=== PATIENT | female | born 1970 | race American Indian/Alaskan Native ===

== ENCOUNTER 2017-01-22 18:36 | Emergency (ER) | payer BC ==
--- NOTE | 2017-01-22 20:42 | XRay Report ---
FINAL REPORT EXAM: XR ANKLE 3 LT HISTORY: swollen and painful for injury TECHNIQUE: Three views left ankle PRIORS: None. FINDINGS: No fracture is identified. No dislocation seen. Ankle mortise is intact no evidence of joint space widening. No erosive or degenerative changes are identified. No evidence of joint effusion. There is lateral soft tissue swelling Noted is a small plantar calcaneal enthesophyte IMPRESSION: Lateral soft tissue swelling Small heel spur noted
--- NOTE | 2017-01-22 21:14 | Emergency Department Report ---
ED Lower Extremity HPI - General Chief Complaint: Extremity Injury, Lower Stated Complaint: TWISTED R ANKLE Time Seen by Provider: 01/22/17 21:13 Source: patient Mode of arrival: Ambulatory Limitations: No Limitations - History of Present Illness Initial Comments: Patient here she reports that she twisted her left ankle and swollen and) and pain at 10 out of 10. Denies any numbness or tingling. Followed by an orthopedic doctor because she said she had surgery for her right ankle. She says she is in physical therapy now. She says she was walking and she rolled her ankle. Denies any fall. MD Complaint: ankle injury Onset/Timin Injury: Ankle: Left (swelling and pain) Type of Injury: inversion Place: street/outdoors Severity: severe Severity scale (0 -10): 8 Improves With: nothing Context: walking Associated Symptoms: swelling, able to partially bear weight. denies: snap/pop sensation, numbness, tingling, unable to bear weight Treatments Prior to Arrival: cold therapy, NSAIDS - Related Data Previous Rx's Medication Instructions Recorded Last Taken Type Clopidogrel Bisulfate [Plavix] 75 mg PO DAILY #30 tablet 11/16/14 Unknown Rx Meclizine [Antivert] 25 mg PO Q8H PRN #30 tablet 11/16/14 Unknown Rx Simvastatin [Zocor TAB] 20 mg PO QHS #30 tablet 11/16/14 Unknown Rx Verapamil ER [Calan SR] 180 mg PO QDAY #30 tablet 11/16/14 Unknown Rx Butalb/Acetamin/Caff 50-325-40 1 tab PO Q4H PRN #20 tablet 09/06/15 Unknown Rx [Fioricet] oxyCODONE /ACETAMINOPHEN [Percocet 1 tab PO Q6HR PRN #14 tablet 09/06/15 Unknown Rx 5/325] Ibuprofen [Motrin 800 MG tab] 800 mg PO Q8H #15 tablet 01/22/17 Unknown Rx Allergies Allergy/AdvReac Type Severity Reaction Status Date / Time adhesive tape Allergy Rash Unverified 08/27/16 07:17 latex Allergy Unknown Verified 09/06/15 10:04 phenytoin sodium AdvReac Hives Verified 09/06/15 10:04 [From Dilantin] phenytoin sodium extended AdvReac Hives Verified 09/06/15 10:04 [From Dilantin] BAND-AID Allergy Unknown Uncoded 08/27/16 07:18 ED Review of Systems ROS: Stated complaint: TWISTED R ANKLE Other details as noted in HPI Comment: All other systems reviewed and negative Constitutional: denies: chills, fever Respiratory: no symptoms reported Cardiovascular: denies: chest pain, palpitations, edema, syncope Gastrointestinal: denies: abdominal pain, nausea, vomiting, diarrhea Genitourinary: denies: urgency, dysuria, frequency, hematuria, discharge Musculoskeletal: joint swelling, arthralgia. denies: back pain, myalgia Skin: denies: rash Neurological: denies: headache, numbness, paresthesias, confusion, abnormal gait , vertigo ED Past Medical Hx - Past Medical History Previous Medical History?: Yes Hx Hypertension: Yes Hx CVA: Yes Hx Congestive Heart Failure: No Hx Diabetes: No Hx Headaches / Migraines: Yes Hx Seizures: Yes (eclampsia) Hx Asthma: No Hx COPD: No Hx HIV: No - Surgical History Past Surgical History?: Yes Additional Surgical History: hysterectomy - Family History Family history: hypertension - Social History Smoking Status: Never Smoker Substance Use Type: Alcohol - Medications Home Medications: Home Medications Medication Instructions Recorded Confirmed Last Taken Type Clopidogrel Bisulfate [Plavix] 75 mg PO DAILY #30 tablet 11/16/14 Unknown Rx Meclizine [Antivert] 25 mg PO Q8H PRN #30 tablet 11/16/14 Unknown Rx Simvastatin [Zocor TAB] 20 mg PO QHS #30 tablet 11/16/14 Unknown Rx Verapamil ER [Calan SR] 180 mg PO QDAY #30 tablet 11/16/14 Unknown Rx Butalb/Acetamin/Caff 50-325-40 1 tab PO Q4H PRN #20 tablet 09/06/15 Unknown Rx [Fioricet] oxyCODONE /ACETAMINOPHEN [Percocet 1 tab PO Q6HR PRN #14 tablet 09/06/15 Unknown Rx 5/325] Ibuprofen [Motrin 800 MG tab] 800 mg PO Q8H #15 tablet 01/22/17 Unknown Rx ED Physical Exam - General Limitations: No Limitations General appearance: alert, in no apparent distress - Head Head exam: Present: atraumatic, normocephalic, normal inspection - Eye Eye exam: Present: normal appearance, PERRL, EOMI Pupils: Present: normal accommodation - ENT ENT exam: Present: normal exam, normal orophraynx, mucous membranes moist, TM's normal bilaterally, normal external ear exam - Neck Neck exam: Present: normal inspection, tenderness, full ROM - Respiratory Respiratory exam: Present: normal lung sounds bilaterally. Absent: respiratory distress, chest wall tenderness - Cardiovascular Cardiovascular Exam: Present: regular rate, normal rhythm, normal heart sounds - Expanded Lower Extremity Exam Left Hip exam: Present: normal inspection, full ROM, pelvic stability. Absent: tenderness, swelling, abrasion, laceration, ecchymosis, deformity, crepidus, dislocation, erythema, external rotation, internal rotation, shortening Upper Leg exam: Present: normal inspection, full ROM. Absent: tenderness, swelling, abrasion, laceration, ecchymosis, deformity, crepidus, dislocation, erythema Knee exam: Present: normal inspection, full ROM, full knee extension. Absent: tenderness, swelling, abrasion, laceration, ecchymosis, deformity, crepidus, dislocation, erythema, effusion, pain w/ pronation/supination, posterior draw sign, pain/laxity with valgus, pain/laxity with varus Lower Leg exam: Present: normal inspection, full ROM. Absent: tenderness, swelling, abrasion, laceration, ecchymosis, deformity, crepidus, dislocation, erythema, palpable cord, Jarret's sign Ankle exam: Present: tenderness (LT outer ankle), swelling (LT outer ankle). Absent: full ROM (patient limited range of motion to left ankle due to pain and swelling. Patient able to ambulate but she is limping. She is able to dorsiflex and plantar flex but painful), abrasion, laceration, ecchymosis, deformity, crepidus, dislocation, erythema Foot/Toe exam: Present: normal inspection, full ROM. Absent: tenderness, swelling, abrasion, laceration, ecchymosis, deformity, crepidus, dislocation, erythema, amputation, puncture wound, foreign body, calcaneal tenderness, tenderness at base of 5th metatarsal, nail avulsion, subungual hematoma Neuro vascular tendon exam: Present: no vascular compromise, significant pain with passive ROM of distal joint. Absent: pulse deficit, abnormal cap refill, motor deficit, sensory deficit, tendon deficit, extremity cold to touch, pallor , abnormal 2-point discrimination, decreased fine/light touch, foot drop, peroneal nerve deficit Gait: Positive: observed and limited by pain - Neurological Exam Neurological exam: Present: alert, oriented X3, abnormal gait (lle), reflexes normal - Psychiatric Psychiatric exam: Present: normal affect, normal mood - Skin Skin exam: Present: warm, dry, intact, normal color. Absent: rash ED Course Vital Signs 01/22/17 19:37 Temperature 97.8 F Pulse Rate 80 Respiratory 18 Rate Blood Pressure 143/94 O2 Sat by Pulse 100 Oximetry - Reevaluation(s) Reevaluation #1: 01/22/17 22:11 Patient given motrin 800 mg po for pain. - Orthopedic Splinting/Casting Injury #1 Side: left Lower Extremity Injury Location: ankle Lower Extremity Immobilizer: Gio wrap Additional Comments: refused crutche ED Lower Extremity MDM - Radiology Data Radiology results: report reviewed X-ray of left ankle reveal no fracture or dislocation positive for soft tissue swelling - Medical Decision Making ED course: See procedure note for details and ankle splinting. Patient x-ray was negative for fracture dislocation and she has ankle sprain and I discussed this with her. I also discuss to rest, ice, compress and elevate the area for 72 hours and to take Motrin as prescribed to decrease swelling. already has orthopedic doctor said told her if her pain is not relieved in 4 days then she will need to follow-up with her orthopedic doctor for further evaluation and treatment. She discharged home with prescription for Motrin. Critical care attestation.: If time is entered above; I have spent that time in minutes in the direct care of this critically ill patient, excluding procedure time. ED Disposition Clinical Impression: Arthralgia of ankle, left Left ankle sprain Qualifiers: Encounter type: initial encounter Involved ligament of ankle: unspecified ligament Qualified Code(s): S93.402A - Sprain of unspecified ligament of left ankle, initial encounter Left ankle injury Qualifiers: Encounter type: initial encounter Qualified Code(s): S99.912A - Unspecified injury of left ankle, initial encounter Disposition: DISCHARGED TO HOME OR SELFCARE Is pt being admited?: No Does the pt Need Aspirin: No Condition: Stable Instructions: Arthralgia (ED), Ankle Sprain (ED) Additional Instructions: Rest, ice, compress and elevate the area for 72 hours. .F/U Orthopedic doctor in 4 days if pain and swelling is now relieved. Prescriptions: Ibuprofen [Motrin 800 MG tab] 800 mg PO Q8H #15 tablet Referrals: Your, ORthopedi doctor [Other] - 01/26/17
[2017-01-22] MEDS ORDERED: MOTRIN PO ONE (21:44)
[2017-01-22 22:24] VITALS: BP 138/95
== END 2017-01-22 22:26 | disposition home or self-care (01) ==
LOC: ED 18:36
DX: S93.402A Sprain of unspecified ligament of left ankle, initial encounter (principal); I10 Essential (primary) hypertension; I63.9 Cerebral infarction, unspecified; G43.909 Migraine, unspecified, not intractable, without status migrainosus; Z91.048 Other nonmedicinal substance allergy status; Z91.040 Latex allergy status; X37.1XXA Tornado, initial encounter; Y93.89 Activity, other specified; Y99.8 Other external cause status; Y92.410 Unspecified street and highway as the place of occurrence of the external cause